=== PATIENT | male | born 1955 | race African-American/Black ===

== ENCOUNTER 2019-05-20 12:30 | Emergency (ER) | payer OTHER ==
[2019-05-20 13:31] LABS: Protime INR 0.99
[2019-05-20 13:52] LABS: ALT/SGPT 18 U/L (12-78); AST/SGOT 14 U/L (15-37); Albumin 4.3 g/dL (3.4-5.0); Alkaline Phosphatase 70 U/L (45-117); BUN Blood Urea Nitrogen 18 mg/dL (7-18); Bicarbonate 25 mmol/L (21-32); Bilirubin Direct 0.2 mg/dL (0-0.2); Bilirubin Total 0.5 mg/dL (0.2-1.0); Glucose Level 126 mg/dL (74-106); Magnesium 2.2 mg/dL (1.8-2.4); NT PRO-BNP 86 pg/mL (<125); Potassium 3.9 mmol/L (3.5-5.1); Protein, Total 7.8 g/dL (6.4-8.2); Sodium Level 142 mmol/L (136-145); Troponin (Emerg Dept Use Only) < 0.02 ng/mL (0.0-0.045)
[2019-05-20 13:54] LABS: Absolute Lymphocytes (CBC) 1.5 K/uL (0.7-4.9); Basophils % 1.2 % (0-1.3); Hematocrit 39.3 % (39.6-49.0); Lymphocytes % 36.7 % (15.3-44.8); MPV 8.3 fL (7.6-11.3); RBC Red Blood Cell Count 4.18 M/uL (4.33-5.43)
--- NOTE | 2019-05-20 14:17 | RAD REPORT ---
EXAM DESCRIPTION: CT - Head Brain Wo Cont - 05/20/2019 1:48 pm CLINICAL HISTORY: Headache COMPARISON: None. TECHNIQUE: Computed axial tomography of the head was obtained. IV contrast was not requested. All CT scans are performed using dose optimization technique as appropriate and may include automated exposure control or mA/KV adjustment according to patient size. FINDINGS: An intracranial bleed is not seen . The ventricles are normal in caliber. No extra-axial fluid collection is noted. 20 millimeter low-density areas present within deep and subcortical white matter of left frontal lobe . Small low-density area within the left cerebellum Fluid within the sinuses/ mastoids is not seen. IMPRESSION: 20 millimeter low-density area within the deep and subcortical white matter left frontal lobe. An old infarct is considered most likely. An acute process is considered less likely. It is re commended that the patient have a nonemergent MRI with IV contrast for further evaluation to determin e if there is abnormal enhancement to suggest an acute process Small low-density area within the left cerebellum likely an old infarct
[2019-05-20] MEDS ORDERED: hydroCHLOROthiazide 25 MG TAB ONE (14:56)
[2019-05-20] MEDS ORDERED: ONDANSETRON 4 MG (ODT) TAB ONE (14:56)
--- NOTE | 2019-05-20 15:28 | RAD REPORT ---
EXAM DESCRIPTION: Arnoldo Single View05/20/2019 3:21 pm CLINICAL HISTORY: sob COMPARISON: none FINDINGS: The lungs appear clear of acute infiltrate. The heart is normal size Pacemaker leads in place IMPRESSION: No acute abnormalities displayed
--- NOTE | 2019-05-20 16:01 | EDPHYS ---
Physician Documentation [facility] Name: Dustin Graf Age: 64 yrs Sex: Male : 1955 Arrival Date: 05/20/2019 Time: 12:32 Bed 19 Private MD: ED Physician Festus Gonzalez HPI: 05/20 13:17 This 64 yrs old Black Male presents to ER via Wheelchair with complaints of Weakness, pm1 Nausea, High Blood Pressure. 13:17 The patient presents to the emergency department with weakness of the entire body, pm1 generalized weakness. Onset: The symptoms/episode began/occurred 2 week(s) ago. Associated signs and symptoms: Pertinent positives: nausea, Pertinent negatives: fever, vomiting. Severity of symptoms: in the emergency department the symptoms are unchanged. Patient presenting to the ER with generalized weakness. Two weeks ago onset of hypertension, saw his PCP, JACKLYN, they gave him a 10 day prescription for hctz to take with his metoprolol and zofran. Patient felt better with the medications until hctz ran out and now he feels the same as he did without the hctz and his blood pressure is high. Historical: - Allergies: 12:42 No Known Allergies; sg - PMHx: 12:42 Hypertension; sg - Immunization history:: Adult Immunizations not up to date. - Social history:: Smoking status: Patient/guardian denies using tobacco. - Ebola Screening: : Patient negative for fever greater than or equal to 101.5 degrees Fahrenheit, and additional compatible Ebola Virus Disease symptoms Patient denies exposure to infectious person Patient denies travel to an Ebola-affected area in the 21 days before illness onset No symptoms or risks identified at this time. ROS: 13:17 Constitutional: Negative for fever, chills, and weight loss, Eyes: Negative for injury, pm1 pain, redness, and discharge, ENT: Negative for injury, pain, and discharge, Neck: Negative for injury, pain, and swelling, Cardiovascular: Negative for chest pain, palpitations, and edema, Respiratory: Negative for shortness of breath, cough, wheezing, and pleuritic chest pain, Back: Negative for injury and pain, : Negative for injury, bleeding, discharge, and swelling, MS/Extremity: Negative for injury and deformity, Skin: Negative for injury, rash, and discoloration. 13:17 Abdomen/GI: Positive for nausea, Negative for abdominal pain, vomiting, diarrhea, constipation. 13:17 Neuro: Positive for headache, weakness, generalized, Negative for dizziness, numbness, tingling. Exam: 13:17 Constitutional: This is a well developed, well nourished patient who is awake, alert, pm1 and in no acute distress. Head/Face: Normocephalic, atraumatic. Eyes: Pupils equal round and reactive to light, extra-ocular motions intact. Lids and lashes normal. Conjunctiva and sclera are non-icteric and not injected. Cornea within normal limits. Periorbital areas with no swelling, redness, or edema. ENT: Nares patent. No nasal discharge, no septal abnormalities noted. Tympanic membranes are normal and external auditory canals are clear. Oropharynx with no redness, swelling, or masses, exudates, or evidence of obstruction, uvula midline. Mucous membranes moist. Neck: Trachea midline, no thyromegaly or masses palpated, and no cervical lymphadenopathy. Supple, full range of motion without nuchal rigidity, or vertebral point tenderness. No Meningismus. Chest/axilla: Normal chest wall appearance and motion. Nontender with no deformity. No lesions are appreciated. Cardiovascular: Regular rate and rhythm with a normal S1 and S2. No gallops, murmurs, or rubs. Normal PMI, no JVD. No pulse deficits. Respiratory: Lungs have equal breath sounds bilaterally, clear to auscultation and percussion. No rales, rhonchi or wheezes noted. No increased work of breathing, no retractions or nasal flaring. Abdomen/GI: Soft, non-tender, with normal bowel sounds. No distension or tympany. No guarding or rebound. No evidence of tenderness throughout. Back: No spinal tenderness. No costovertebral tenderness. Full range of motion. Skin: Warm, dry with normal turgor. Normal color with no rashes, no lesions, and no evidence of cellulitis. MS/ Extremity: Pulses equal, no cyanosis. Neurovascular intact. Full, normal range of motion. 13:17 Neuro: Orientation: is normal, Motor: is normal, moves all fours, Sensation: is normal, no obvious gross deficits. Vital Signs: 12:41 BP 163 / 84; Pulse 77; Resp 16; Temp 98.6; Pulse Ox 100% on R/A; Pain 10/10; sg 13:00 BP 177 / 83; Pulse 61; Resp 18; Pulse Ox 99% on R/A; Pain 8/10; em 14:03 BP 170 / 94; Pulse 61; Resp 18; Pulse Ox 99% on R/A; em 14:59 BP 175 / 84; Pulse 64; Resp 18; Pulse Ox 100% on R/A; Pain 3/10; em 16:21 BP 168 / 91; Pulse 65; Resp 18; Pulse Ox 99% on R/A; Pain 0/10; em MDM: 12:49 Patient medically screened. pm1 15:15 Data reviewed: vital signs. Data interpreted: Pulse oximetry: on room air is 100 %. pm1 Interpretation: normal. Counseling: I had a detailed discussion with the patient and/or guardian regarding: the historical points, exam findings, and any diagnostic results supporting the discharge/admit diagnosis, lab results, radiology results, the need for outpatient follow up, to return to the emergency department if symptoms worsen or persist or if there are any questions or concerns that arise at home. 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 CT result pm1 is like old infarct since we have no comparison. Patient without any deficits. 05/20 12:50 Order name: Basic Metabolic Panel; Complete Time: 13:54 pm1 05/20 12:50 Order name: CBC with Diff; Complete Time: 14:00 pm1 05/20 12:50 Order name: LFT's; Complete Time: 13:54 pm1 05/20 12:50 Order name: Magnesium; Complete Time: 13:54 pm1 05/20 12:50 Order name: NT PRO-BNP; Complete Time: 13:54 pm1 05/20 12:50 Order name: PT-INR; Complete Time: 13:39 pm1 05/20 12:50 Order name: Troponin (emerg Dept Use Only); Complete Time: 13:54 pm1 05/20 12:50 Order name: XRAY Chest (1 view); Complete Time: 15:36 pm1 05/20 12:50 Order name: EKG; Complete Time: 12:51 pm1 05/20 12:50 Order name: Cardiac monitoring; Complete Time: 13:22 pm1 05/20 13:21 Order name: CT Head Brain wo Cont; Complete Time: 14:28 pm1 05/20 12:50 Order name: EKG - Nurse/Tech; Complete Time: 13:22 pm1 05/20 12:50 Order name: IV Saline Lock; Complete Time: 13:22 pm1 05/20 12:50 Order name: Labs collected and sent; Complete Time: 13:22 pm1 05/20 12:50 Order name: O2 Per Protocol; Complete Time: 13:23 pm1 05/20 12:50 Order name: O2 Sat Monitoring; Complete Time: 13:22 pm1 Administered Medications: 14:56 Not Given (Other Intervention Used): Zofran 4 mg IVP once; over 2 minutes em 15:04 Drug: Hydrochlorothiazide 25 mg Route: PO; em 16:22 Follow up: Response: No adverse reaction em 15:05 Drug: Zofran 4 mg Route: PO; em 16:22 Follow up: Response: No adverse reaction em Disposition: 05/20/19 15:58 Discharged to Home. Impression: Essential (primary) hypertension, Nausea, Weakness. - Condition is Stable. - Discharge Instructions: Hypertension, Nausea, Adult, Weakness, How to Take Your Blood Pressure, [id number], DASH Eating Plan, Managing Your Hypertension. - Prescriptions for Hydrochlorothiazide 25 mg Oral Tablet - take 1 tablet by ORAL route once daily .; 30 tablet. Zofran 4 mg Oral Tablet - take 1 tablet by ORAL route every 12 hours As needed; 20 tablet. - Medication Reconciliation Form, Thank You Letter, Antibiotic Education, Prescription Opioid Use form. - Follow up: Emergency Department; When: As needed; Reason: Worsening of condition. Follow up: Private Physician; When: 2 - 3 days; Reason: Recheck today's complaints, Continuance of care, Re-evaluation by your physician. - Problem is new. - Symptoms have improved. Addendum: 05/22/2019 09:49 Co-signature as Attending Physician, Festus Gonzalez MD I agree with the assessment and k dr plan of care. Signatures: Dispatcher [employer] EDByron Hanson RN RN sg Rittger, Kevin, MD MD kdr Vitaliy Sanchez, COMPOUNDER FLAVORINGS COMPOUNDER FLAVORINGS em Ruslan Nagel, FRONT OFFICE ADMINISTRATOR FRONT OFFICE ADMINISTRATOR pm1 Corrections: (The following items were deleted from the chart) 05/20 16:23 15:58 05/20/2019 15:58 Discharged to Home. Impression: Essential (primary) em hypertension; Nausea; Weakness. Condition is Stable. Forms are Medication Reconciliation Form, Thank You Letter, Antibiotic Education, Prescription Opioid Use. Follow up: Emergency Department; When: As needed; Reason: Worsening of condition. Follow up: Private Physician; When: 2 - 3 days; Reason: Recheck today's complaints, Continuance of care, Re-evaluation by your physician. Problem is new. Symptoms have improved. pm1
--- NOTE | 2019-05-20 16:01 | ER ---
Nurse's Notes [facility] Name: Dustin Graf Age: 64 yrs Sex: Male : 1955 Arrival Date: 05/20/2019 Time: 12:32 Bed 19 Private MD: Diagnosis: Essential (primary) hypertension;Nausea;Weakness Presentation: 05/20 12:40 Presenting complaint: Patient states: Have high blood pressure but at home its been sg like 170's on the top number, have not been able to eat and drink due to having nausea/vomiting. Presenting complaint: weakness in entire body that started today. Transition of care: patient was not received from another setting of care. No acute neurological deficit is noted. Onset of symptoms was May 20, 2019. Risk Assessment: Do you want to hurt yourself or someone else? Patient reports no desire to harm self or others. Initial Sepsis Screen: Does the patient meet any 2 criteria? No. Patient's initial sepsis screen is negative. Does the patient have a suspected source of infection? No. Patient's initial sepsis screen is negative. Care prior to arrival: None. 12:40 Method Of Arrival: Wheelchair sg 12:40 Acuity: ZANDER 3 sg Stroke Activation: Symptom onset < 3 hours Physician: Stroke Attending; Name: ; Notified At: ; Arrived At: Physician: Chief Stroke Resident; Name: ; Notified At: ; Arrived At: Physician: Stroke Resident; Name: ; Notified At: ; Arrived At: Physician: ED Attending; Name: ; Notified At: ; Arrived At: Physician: ED Resident; Name: ; Notified At: ; Arrived At: Historical: - Allergies: 12:42 No Known Allergies; sg - PMHx: 12:42 Hypertension; sg - Immunization history:: Adult Immunizations not up to date. - Social history:: Smoking status: Patient/guardian denies using tobacco. - Ebola Screening: : Patient negative for fever greater than or equal to 101.5 degrees Fahrenheit, and additional compatible Ebola Virus Disease symptoms Patient denies exposure to infectious person Patient denies travel to an Ebola-affected area in the 21 days before illness onset No symptoms or risks identified at this time. Screenin:45 Abuse screen: Denies threats or abuse. Nutritional screening: No deficits noted. em Tuberculosis screening: No symptoms or risk factors identified. Fall Risk None identified. Assessment: 12:45 General: Appears in no apparent distress. uncomfortable, Behavior is calm, cooperative, em Reports fever for. Pain: Complains of pain in right orthodoxy Pain currently is 8 out of 10 on a pain scale. Pain began 2-3 days ago. Neuro: Level of Consciousness is awake, alert, obeys commands, Oriented to person, place, time, situation, Appropriate for age. Cardiovascular: Capillary refill < 3 seconds Patient's skin is warm and dry. Respiratory: Airway is patent Respiratory effort is even, unlabored, Respiratory pattern is regular, symmetrical, Breath sounds are clear bilaterally. GI: Abdomen is flat, Bowel sounds present X 4 quads. Abd is soft and non tender X 4 quads. Reports nausea, Patient currently denies diarrhea, vomiting. : Denies burning with urination. Derm: Skin is intact, is healthy with good turgor, Skin is pink, warm \T\ dry. Musculoskeletal: Capillary refill < 3 seconds, Range of motion: intact in all extremities. 12:52 Reassessment: I agree with previous assessment. hb 14:03 Reassessment: Patient appears in no apparent distress at this time. Patient and/or em family updated on plan of care and expected duration. Pain level reassessed. Patient is alert, oriented x 3, equal unlabored respirations, skin warm/dry/pink. 15:05 Reassessment: Patient appears in no apparent distress at this time. Patient and/or em family updated on plan of care and expected duration. Pain level reassessed. Patient is alert, oriented x 3, equal unlabored respirations, skin warm/dry/pink. Patient denies pain at this time. Patient states feeling better. Patient states symptoms have improved. 16:22 Reassessment: Patient appears in no apparent distress at this time. Patient and/or em family updated on plan of care and expected duration. Pain level reassessed. Patient is alert, oriented x 3, equal unlabored respirations, skin warm/dry/pink. Patient denies pain at this time. Patient states feeling better. Patient states symptoms have improved. Vital Signs: 12:41 BP 163 / 84; Pulse 77; Resp 16; Temp 98.6; Pulse Ox 100% on R/A; Pain 10/10; sg 13:00 BP 177 / 83; Pulse 61; Resp 18; Pulse Ox 99% on R/A; Pain 8/10; em 14:03 BP 170 / 94; Pulse 61; Resp 18; Pulse Ox 99% on R/A; em 14:59 BP 175 / 84; Pulse 64; Resp 18; Pulse Ox 100% on R/A; Pain 3/10; em 16:21 BP 168 / 91; Pulse 65; Resp 18; Pulse Ox 99% on R/A; Pain 0/10; em ED Course: 12:32 Patient arrived in ED. rg4 12:37 Ruslan Nagel NP is PHCP. pm1 12:37 Festus Gonzalez MD is Attending Physician. pm1 12:38 Vitaliy Sanchez LVN is Primary Nurse. em 12:41 Triage completed. sg 12:41 Arm band placed on. sg 12:45 Patient has correct armband on for positive identification. Placed in gown. Bed in low em position. Call light in reach. Side rails up X2. Adult w/ patient. director student union on. Pulse ox on. NIBP on. 13:20 Initial lab(s) drawn, by me, sent to lab. em 13:49 CT Head Brain wo Cont In Process Unspecified. EDMS 15:23 XRAY Chest (1 view) In Process Unspecified. EDMS 16:19 No provider procedures requiring assistance completed. Patient did not have IV access em during this emergency room visit. Administered Medications: 14:56 Not Given (Other Intervention Used): Zofran 4 mg IVP once; over 2 minutes em 15:04 Drug: Hydrochlorothiazide 25 mg Route: PO; em 16:22 Follow up: Response: No adverse reaction em 15:05 Drug: Zofran 4 mg Route: PO; em 16:22 Follow up: Response: No adverse reaction em Outcome: 15:58 Discharge ordered by MD. pm1 16:21 Discharged to home ambulatory, with family. em 16:21 Condition: good 16:21 Discharge instructions given to patient, family, Instructed on discharge instructions, follow up and referral plans. medication usage, Demonstrated understanding of instructions, follow-up care, medications, Prescriptions given X 2. 16:23 Patient left the ED. em Signatures: Dispatcher [employer] EDMS Byron Huber RN RN Vitaliy Sanchez LVN EXTRACTION MACHINE OPERATOR em Ruslan Nagel NP [employer] pm1 Haily Kendall, RN RN hb Emiliano, Kassy rg4
[2019-05-20 18:38] VITALS: TEMP 98.6
[2019-05-20 18:51] VITALS: BP 168/91; O2SAT 99
--- NOTE | 2019-05-21 18:24 | EKG ---
Test Date: 2019-05-20 Test Time: 12:55:52 Payroll Accounting Specialist: MEASUREMENT RESULTS: Intervals: Rate: 67 MD: QRSD: 180 QT: 470 QTc: 496 [place]: P: 78 MD: QRS: -76 T: 109 INTERPRETIVE STATEMENTS: Electronic ventricular pacemaker No previous ECG available for comparison Electronically Signed On 05-21-19 18:22:54 CDT by Lupillo Forman
== END 2019-05-20 16:23 | disposition home or self-care (01) ==
LOC: ER 12:30
DX: I10 Essential (primary) hypertension (principal); R53.1 Weakness; R11.0 Nausea
CPT/HCPCS: 36415; 70450; 71045; 80048; 80076; 83735; 83880; 84484; 85025; 85610; 93005; 99284

== ENCOUNTER 2024-09-08 15:51 | Emergency (ER) | payer OTHER ==
--- OUTSIDE RECORDS SUMMARY | 2024-09-08 15:55 | XMS REPORT | Continuity of Care Document ---
Author Name Unknown Address [address] [place] [address] [address] [id number] [facility] thconnect Address [address] [facility]. [address] [place] [address] Care Team Providers Care Estimating Manager Name Role Phone Unavailable Unavailable Unavailable Payers Payer Name Policy Type Policy Number Effective Date Expirati on Date Source [employer] (MEDICARE REPLACEMENT HMO) [id number] 2023 00:00:00 Encounters Start Date/Time End Date/Time Encounter Type Admission Type Attending [facility] Facility Care Department Encounter ID Source 2023-04-23 00:00:00 2023-04-23 00:00:00 Outpatient DMG DMG [id number] [facility] 2022-10-16 14:36:16 2022-10-16 14:36:16 Outpatient SFA SFA [id number] Chaka Jones
[2024-09-08] MEDS ORDERED: IBUPROFEN 400 MG TAB ONE (16:45)
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
[2024-09-08 18:01] VITALS: BP 137/73; TEMP 98; O2SAT 98
== END 2024-09-08 17:54 | disposition home or self-care (01) ==
LOC: ER 15:51
DX: M54.12 Radiculopathy, cervical region (principal); V49.40XA Driver injured in collision with unspecified motor vehicles in traffic accident, initial encounter; F17.210 Nicotine dependence, cigarettes, uncomplicated
CPT/HCPCS: 70450; 72125; 99283